=== PATIENT | male | born 1960 | race Caucasian/White ===

== ENCOUNTER 2017-11-03 22:18 | Emergency (ER) | payer OTHER ==
[~2017-11-03] VITALS: Ht 177.8 cm; Wt 93.0 kg
[~2017-11-03 22:18] MED LIST: BISO5TAB PO; MESA1.2T PO; TRAM50TA2 PO
[2017-11-03 22:20] VITALS: BP 160/86
[2017-11-03] MEDS ORDERED: PROPARACAINE/FLUORESCEIN ophthalmic drops 5ml bottle RIGHTEYE ONE (23:00)
[2017-11-03] MEDS ORDERED: sod sulfacetamide/prednisoLONE ophth susp 5ml RIGHTEYE STA (23:36)
[2017-11-03] MEDS ORDERED: TETanus/Pertussis (Acell)/Diphther VAC/PF (Tdap-Adult) 0.5ml syringe IMVAC ONE (23:40)
== END 2017-11-03 23:58 | disposition home or self-care (01) ==
LOC: ER 22:19
DX: T15.01XA Foreign body in cornea, right eye, initial encounter (principal); I10 Essential (primary) hypertension; G89.29 Other chronic pain; Z90.89 Acquired absence of other organs; Z88.5 Allergy status to narcotic agent; Z79.899 Other long term (current) drug therapy; X58.XXXA Exposure to other specified factors, initial encounter; Y93.89 Activity, other specified; Y92.89 Other specified places as the place of occurrence of the external cause; Y99.8 Other external cause status
CPT/HCPCS: 65220; 90471; 90715; 99284

== ENCOUNTER 2018-05-28 15:34 | Outpatient (CLI) | payer OTHER | END 2018-05-28 23:59 | disposition home or self-care (01) | LOC: RAD 15:34 | PROVIDERS: ATTEND Chiropractor | DX: M19.012 Primary osteoarthritis, left shoulder (principal); M25.412 Effusion, left shoulder; I10 Essential (primary) hypertension; Z87.891 Personal history of nicotine dependence | CPT/HCPCS: 73221 ==

== ENCOUNTER 2018-08-07 06:59 | Outpatient (CLI) | payer OTHER ==
[2018-08-07 08:15] LABS: ALANINE AMINOTRANSFERASE 37 U/L (12-78); ALBUMIN 3.6 G/DL (3.4-5.0); ALBUMIN/GLOBULIN RATIO 1.1 (1.1-1.5); ALKALINE PHOSPHATASE 81 IU/L (46-116); ANION GAP 9 (8-16); ASPARTATE AMINO TRANSFERASE 21 U/L (10-37); BILIRUBIN,TOTAL 0.3 MG/DL (0.1-1.0); BLOOD UREA NITROGEN 13 MG/DL (7-18); BUN/CREATININE RATIO 14.4 (5.4-32.0); CALCIUM 8.5 MG/DL (8.5-10.1); CHLORIDE 104 MMOL/L (99-107); GLUCOSE 107 MG/DL (70-104); POTASSIUM 3.6 MMOL/L (3.5-5.1); SODIUM 139 MMOL/L (135-145); TOTAL CARBON DIOXIDE 25.8 MMOL/L (24-32); TOTAL PROTEIN 6.9 G/DL (6.4-8.2); eGFR 87 ML/MIN
[2018-08-07 08:16] LABS: CHOL/HDL RATIO 5.3 (0.00-4.99); CHOLESTEROL 159 MG/DL (0-200); HDL CHOLESTEROL 30 MG/DL (35-60); LDL CHOLESTEROL 118 MG/DL (50-100); TRIGLYCERIDES 67 MG/DL (20-135)
[2018-08-08 11:15] LABS: % FREE PSA 15.4 % (.); PSA, FREE 0.2 ng/mL
== END 2018-08-07 23:59 | disposition home or self-care (01) ==
LOC: LAB 06:59
PROVIDERS: ATTEND Family Medicine
DX: I10 Essential (primary) hypertension (principal); N40.0 Benign prostatic hyperplasia without lower urinary tract symptoms; E78.5 Hyperlipidemia, unspecified
CPT/HCPCS: 36415; 80053; 80061; 84153; 84154

== ENCOUNTER 2018-08-18 11:18 | Emergency (ER) | payer OTHER ==
[~2018-08-18] VITALS: Ht 177.8 cm; Wt 86.4 kg
[2018-08-18] MEDS ORDERED: dexamethasone sod phosphate 10mg/ml inj IM STA (12:22)
[2018-08-18] MEDS ORDERED: METH4TAB81 PO (13:12)
[2018-08-18] MEDS ORDERED: TRAM50TA2 PO (13:29)
[2018-08-18 13:35] VITALS: BP 138/79
== END 2018-08-18 13:36 | disposition home or self-care (01) ==
LOC: ER 11:18
DX: G89.29 Other chronic pain (principal); M54.5 Low back pain; I10 Essential (primary) hypertension; Z88.5 Allergy status to narcotic agent; Z79.899 Other long term (current) drug therapy
CPT/HCPCS: 72100; 96372; 99283; J1100

== ENCOUNTER 2019-12-21 07:37 | Outpatient (CLI) | payer BC ==
[~2019-12-21 07:37] MED LIST changes: +METH4TAB81 PO
[2019-12-21 08:15] LABS: ALANINE AMINOTRANSFERASE 35 U/L (12-78); ALBUMIN 4.1 G/DL (3.4-5.0); ALBUMIN/GLOBULIN RATIO 1.3 (1.1-1.5); ALKALINE PHOSPHATASE 81 IU/L (46-116); ANION GAP 10 (8-16); ASPARTATE AMINO TRANSFERASE 22 U/L (10-37); BILIRUBIN,TOTAL 0.4 MG/DL (0.1-1.0); BLOOD UREA NITROGEN 18 MG/DL (7-18); BUN/CREATININE RATIO 18.8 (5.4-32.0); CALCIUM 8.5 MG/DL (8.5-10.1); CHLORIDE 104 MMOL/L (99-107); CHOL/HDL RATIO 5.3 (0.00-4.99); CHOLESTEROL 196 MG/DL (0-200); CREATININE 0.96 MG/DL (0.60-1.10); GLUCOSE 108 MG/DL (70-104); HDL CHOLESTEROL 37 MG/DL (35-60); LDL CHOLESTEROL 146 MG/DL (50-100); POTASSIUM 3.7 MMOL/L (3.5-5.1); SODIUM 138 MMOL/L (135-145); TOTAL CARBON DIOXIDE 24.1 MMOL/L (24-32); TOTAL PROTEIN 7.3 G/DL (6.4-8.2); TRIGLYCERIDES 105 MG/DL (20-135); eGFR 80 ML/MIN
== END 2019-12-21 23:59 | disposition home or self-care (01) ==
LOC: LAB 07:37
PROVIDERS: ATTEND Family Medicine
DX: Z00.00 Encounter for general adult medical examination without abnormal findings (principal); I10 Essential (primary) hypertension; E78.5 Hyperlipidemia, unspecified
CPT/HCPCS: 36415; 80053; 80061

== ENCOUNTER 2021-04-12 06:12 | Day surgery (SDC) | payer OTHER ==
[2021-04-11 13:19] LABS: BASOPHILS # (AUTO) 0.1 X10'3 (0-0.2); BASOPHILS % (AUTO) 1.5 % (0-1); EOSINOPHILS # (AUTO) 0.2 X10'3 (0-0.9); EOSINOPHILS % (AUTO) 3.5 % (0-6); HEMATOCRIT 42.5 % (42.0-52.0); HEMOGLOBIN 14.2 g/dl (14.0-17.9); LYMPHOCYTES # (AUTO) 1.8 X10'3 (1.1-4.8); LYMPHOCYTES % (AUTO) 30.1 % (21-51); MEAN CORPUSCULAR HEMOGLOBIN 32.5 PG (27.0-31.0); MEAN CORPUSCULAR HGB CONC 33.5 g/dL (33.0-36.5); MEAN CORPUSCULAR VOLUME 97.2 FL (78-98); MONOCYTES # (AUTO) 0.6 X10'3 (0-0.9); NEUTROPHILS # (AUTO) 3.4 X10'3 (1.8-7.7); NEUTROPHILS % (AUTO) 55.9 % (42-75); PLATELET COUNT 344 X10'3 (140-440); RED BLOOD COUNT 4.38 X10'6 (4.70-6.10); RED CELL DISTRIBUTION WIDTH 14.7 % (11.5-14.5); WHITE BLOOD COUNT 6.1 X10'3 (4.5-11.0)
[2021-04-11 13:25] LABS: ANION GAP 9 (8-16); BLOOD UREA NITROGEN 10 MG/DL (7-18); BUN/CREATININE RATIO 13.2 (5.4-32.0); CALCIUM 9.1 MG/DL (8.5-10.1); CHLORIDE 105 MMOL/L (99-107); CREATININE 0.76 MG/DL (0.60-1.10); GLUCOSE 94 MG/DL (70-104); POTASSIUM 3.8 MMOL/L (3.5-5.1); SODIUM 140 MMOL/L (135-145); TOTAL CARBON DIOXIDE 26.1 MMOL/L (24-32); eGFR > 90 ML/MIN
[2021-04-11 13:29] LABS: APTT 27 SECONDS (22-32)
[2021-04-12] VITALS (16 sets, daily range): BP systolic 94–157; BP diastolic 55–80
[~2021-04-12] VITALS: Ht 175.3 cm; Wt 92.6 kg
[2021-04-12] MEDS ORDERED: MERC50TA16 PO (06:31)
[2021-04-12] MEDS ORDERED: ATOR20TA66 PO (06:31)
[2021-04-12] MEDS ORDERED: diphenhydrAMINE 25mg capsule PO PRN (06:35)
[2021-04-12] MEDS ORDERED: LORazepam 0.5 MG tablet PO PRN (06:35)
[2021-04-12] MEDS ORDERED: normal saline 1,000 ML IV SCH (06:35)
[2021-04-12] MEDS ORDERED: LIDOcaine/PRILOcaine 5gm cream TP ONE (06:35)
[2021-04-12] MEDS ORDERED: nitroGLYCERIN-Tridil 50MG/D5W 250 ML IV ONE (07:20)
[2021-04-12] MEDS ORDERED: LIDOcaine 1% (10mg/ml)w/preservative injection 20ml MDV ONE (07:21)
[2021-04-12] MEDS ORDERED: midazolam 1 mg/ML 2ml injection ONE (07:21)
[2021-04-12] MEDS ORDERED: iohexol 350MG/ML 100ml bottle IV ONE (07:21)
[2021-04-12] MEDS ORDERED: iohexol 350 MG/ML 50ML vial IV ONE (07:21)
[2021-04-12] MEDS ORDERED: fentaNYL/PF 50MCG/1 ML 2ML syringe ONE (07:21)
[2021-04-12] MEDS ORDERED: verapamil 2.5 mg/ml inj IV ONE (07:26)
[2021-04-12] MEDS ORDERED: heparin 1,000unit/ml 10ml vial 10 ML ONE ×2 (07:27→09:38)
[2021-04-12] MEDS ORDERED: iohexol 350 MG/1 ML 200ml bottle ONE (08:28)
[2021-04-12] MEDS ORDERED: heparin 25,000 UNIT/250ml bag 250 ML IV ONE (08:43)
[2021-04-12] MEDS ORDERED: potassium Cl 20mEq/100mL bag 100 ML IV ONE (08:53)
[2021-04-12] MEDS ORDERED: clopidogrel 300mg tablet ONE (09:31)
[2021-04-12] MEDS ORDERED: HYDROcodone/acetaminophen 5mg/325mg tablet PO PRN (10:35)
[2021-04-12] MEDS ORDERED: HYDROcodone/acetaminophen 10/325mg tab PO PRN (10:35)
== END 2021-04-12 17:25 | disposition home or self-care (01) ==
LOC: SSTAY O 06:12
PROVIDERS: ATTEND Internal Medicine Cardiovascular Disease
DX: R94.39 Abnormal result of other cardiovascular function study (principal); I25.10 Atherosclerotic heart disease of native coronary artery without angina pectoris; I12.9 Hypertensive chronic kidney disease with stage 1 through stage 4 chronic kidney disease, or unspecified chronic kidney disease; N18.9 Chronic kidney disease, unspecified; E78.5 Hyperlipidemia, unspecified; I25.2 Old myocardial infarction; Z82.49 Family history of ischemic heart disease and other diseases of the circulatory system
CPT/HCPCS: 36415; 76937; 80048; 85025; 85347; 85610; 85730; 93005; 93458; 99152; 99153; C1725; C1751; C1769; C1874; C9600; J1644; J2250; J3010; J3480; J3490; J7030; Q0163; Q9967; A5120

== ENCOUNTER 2022-05-04 12:18 | Emergency (ER) | payer OTHER ==
[~2022-05-04] VITALS: Ht 177.8 cm; Wt 87.3 kg
[~2022-05-04 12:18] MED LIST changes: +ATOR20TA66 PO; +MERC50TA16 PO; -METH4TAB81 PO; -TRAM50TA2 PO
[2022-05-04 14:27] VITALS: BP 135/95
== END 2022-05-04 14:31 | disposition home or self-care (01) ==
LOC: ER 12:19
DX: R10.32 Left lower quadrant pain (principal); R05.9 Cough, unspecified; I10 Essential (primary) hypertension; G89.29 Other chronic pain; Z90.89 Acquired absence of other organs; Z98.890 Other specified postprocedural states; Z88.8 Allergy status to other drugs, medicaments and biological substances; Z79.899 Other long term (current) drug therapy
CPT/HCPCS: 76881; 99284